=== PATIENT | female | born 1995 | race American Indian/Alaskan Native ===

== ENCOUNTER 2020-03-07 07:13 | Emergency (ER) | payer SELFPAY ==
[2020-03-07] MEDS ORDERED: SODIUM CHLORIDE 0.9% 1000 ML 1,000 ML IV ONE (07:41)
--- NOTE | 2020-03-07 07:45 | Emergency Department Report ---
ED General Adult HPI - General Chief complaint: Sore Throat Stated complaint: SORE THROAT Time Seen by Provider: 03/07/20 07:26 Source: patient Mode of arrival: Ambulatory Limitations: No Limitations - History of Present Illness Initial comments: Patient is 24-year-old female with no significant past medical history. Patient presented to the ER complaining of severe sore throat for the last 5 days. Patient stated that she is having difficulty swallowing and difficulty breathing. Patient stated that she had fever on and off for the last few days. Patient denied any runny nose cough, congestion or shortness of breath. Severity scale (0 -10): 9 - Related Data Allergies Allergy/AdvReac Type Severity Reaction Status Date / Time No Known Allergies Allergy Unverified 03/07/20 07:15 ED Review of Systems ROS: Stated complaint: SORE THROAT Other details as noted in HPI Comment: All other systems reviewed and negative Constitutional: chills, fever ENT: throat pain. denies: dental pain, congestion Respiratory: denies: cough, orthopnea, shortness of breath, SOB with exertion, SOB at rest Cardiovascular: denies: chest pain, palpitations Gastrointestinal: denies: abdominal pain, nausea, vomiting Musculoskeletal: denies: back pain Neurological: denies: headache, weakness ED Past Medical Hx - Surgical History Hx Cholecystectomy: Yes - Social History Smoking Status: Current Every Day Smoker Substance Use Type: Alcohol, Marijuana ED Physical Exam - General Limitations: No Limitations General appearance: alert, in no apparent distress - Head Head exam: Present: atraumatic, normocephalic, normal inspection - Eye Eye exam: Present: normal appearance, PERRL - ENT ENT exam: Present: other (Pharyngeal erythema, tonsillar enlargement and exudates.) - Neck Neck exam: Present: normal inspection, full ROM. Absent: tenderness, meningismus, lymphadenopathy, thyromegaly - Respiratory Respiratory exam: Present: normal lung sounds bilaterally - Cardiovascular Cardiovascular Exam: Present: tachycardia - GI/Abdominal GI/Abdominal exam: Present: soft, normal bowel sounds. Absent: distended, tenderness, guarding, rebound, rigid, organomegaly, mass, bruit, pulsatile mass, hernia - Extremities Exam Extremities exam: Present: normal inspection, full ROM, normal capillary refill. Absent: pedal edema, calf tenderness - Back Exam Back exam: Present: normal inspection, full ROM. Absent: CVA tenderness (R) - Neurological Exam Neurological exam: Present: alert, oriented X3, CN II-XII intact, normal gait, reflexes normal. Absent: motor sensory deficit - Psychiatric Psychiatric exam: Present: normal mood - Skin Skin exam: Present: warm, intact, normal color ED Course Vital Signs 03/07/20 03/07/20 03/07/20 07:20 07:57 08:00 Temperature 98.1 F Pulse Rate 116 H Respiratory 18 Rate Blood Pressure 119/73 Blood Pressure 115/82 [Left] O2 Sat by Pulse 99 98 100 Oximetry 03/07/20 03/07/20 03/07/20 08:45 10:00 11:13 Temperature Pulse Rate 100 H Respiratory 16 Rate Blood Pressure 121/78 99/57 Blood Pressure 115/74 [Left] O2 Sat by Pulse 98 99 100 Oximetry ED Medical Decision Making - Lab Data Result diagrams: 03/07/20 07:51 03/07/20 07:51 - Radiology Data Radiology results: report reviewed - Medical Decision Making Patient is 24-year-old female with no significant past medical history. Patient presented to the ER complaining of severe sore throat for the last 5 days. Patient stated that she is having difficulty swallowing and difficulty breathing. Patient stated that she had fever on and off for the last few days. Patient denied any runny nose cough, congestion or shortness of breath. Patient received Decadron, clindamycin, morphine and Zofran. Patient stated th at she is feeling better. White blood cells is 16,[address] neck with IV contrast showed no airway compromise, no peritonsillar abscess. Possible parotitis on the right side. Patient advised to follow-up with her primary care physician in the next 2 to 3 days and to return to the ER if she develop any new symptoms. Patient given prescription for clindamycin, prednisone, tramadol and Zofran. Critical care attestation.: If time is entered above; I have spent that time in minutes in the direct care of this critically ill patient, excluding procedure time. ED Disposition Clinical Impression: Difficulty swallowing, Pharyngitis, Parotitis Disposition: TO HOME OR SELFCARE Is pt being admited?: No Condition: Stable Instructions: Pharyngitis (ED) Referrals: HUGH MARTINEZ MD [Primary Care Provider] - 3-5 Days
[2020-03-07] MEDS ORDERED: ONDANSETRON 4 MG/2 ML INJ IV ONE (07:54)
[2020-03-07] MEDS ORDERED: MORPHINE 4 MG/1 ML INJ IV ONE (07:54)
[2020-03-07 08:01] LABS: Basophils % (Auto) 0.1 % (0.0-1.8); Eosinophils % (Auto) 0.2 % (0.0-4.3); Hematocrit 40.7 % (30.3-42.9); Hemoglobin 13.8 gm/dl (10.1-14.3); Lymphocytes % (Auto) 6.5 % (13.4-35.0); Mean Corpuscular HGB Conc 34 % (30-34); Mean Corpuscular Volume 85 fl (79-97); Monocytes # (Auto) 1.9 K/mm3 (0.0-0.8); Monocytes % (Auto) 12.1 % (0.0-7.3); Platelet Count 151 K/mm3 (140-440); Red Cell Distribution Width 12.8 % (13.2-15.2)
[2020-03-07] MEDS ORDERED: MORPHINE 2 MG/1 ML INJ ONE (08:02)
[2020-03-07] MEDS ORDERED: dexAMETHasone 20 MG/5 ML VIAL IV ONE (09:39)
[2020-03-07 09:51] LABS: BUN/Creatinine Ratio 28; Blood Urea Nitrogen 17 mg/dL (7-17); Calcium 9.8 mg/dL (8.4-10.2); Hemolysis Index 14
--- NOTE | 2020-03-07 10:56 | Cat Scan Report ---
CT NECK WITH CONTRAST HISTORY: Difficulty swallowing; pain in the ears COMPARISON: None. TECHNIQUE: Routine CT of the neck is performed following intravenous contrast. All CT scans at this [facility] emergency department are performed using CT dose reduction for ALARA by means of automated exposure control CONTRAST: 100 mL Omnipaque 300 FINDINGS: Skull Base: No significant abnormality. Parotid, Carotid, Retropharyngeal, Prevertebral, Pharyngeal Mucosal, and Facilities Technician Spaces: Compared to to the left side, there is more enhancement in the right parotid gland without dominant mass. I do not see enhancement of the right parotid capsule. Adjacent subcutaneous tissue is normal. No obstruc tive lesion is seen along the parotid glands. One consideration is parotitis. Is there localizing ten derness over the right parotid gland. Both faucial tonsils are prominent. I do not see CT findings to suggest peritonsillar abscess. Epiglottis is normal. Floor of the mouth normal Airway: Patent and without significant abnormality. Lymphatics: Reactive lymph nodes are seen at level 2 Vasculature: No significant abnormality. Osseous Structures: No significant abnormality Additional findings: Mastoid air cells and middle ear are normal; mucosal thickening in the inferior maxillary sinuses; these could be odontogenic also IMPRESSION: Airway is not compromised No CT findings to suggest peritonsillar abscess Level 2 reactive adenopathy Right parotid gland is enhancing slightly more than the left side; is there tenderness over the right parotid gland; Parotitis Signer Name: Kurtis Charlton MD Signed: 03/07/2020 10:52 AM Workstation Name: [id number]
[2020-03-07 11:14] VITALS: BP 115/74
== END 2020-03-07 12:36 | disposition home or self-care (01) ==
LOC: ED 07:13
DX: J02.9 Acute pharyngitis, unspecified (principal); K11.20 Sialoadenitis, unspecified; F17.200 Nicotine dependence, unspecified, uncomplicated; F14.10 Cocaine abuse, uncomplicated
CPT/HCPCS: 36415; 70491; 80048; 84703; 85025; 87116; 87430; 96365; 96375; 99284; J1100; J2270; J2405; J7030; Q9967